=== PATIENT | female | born 1935 | race Caucasian/White ===

== ENCOUNTER → 2017-02-05 | Outpatient (CLI) | payer BC ==
--- NOTE | 2017-02-05 15:47 | MAMMOGRAPHY REPORT ---
BILATERAL DIGITAL SCREENING MAMMOGRAM TOMOSYNTHESIS WITH CAD: 02/05/2017 CLINICAL HISTORY: Routine screening. Patient has no complaints. TECHNIQUE: Breast tomosynthesis in addition to standard 2D mammography was performed. Current study was also evaluated with a Computer Aided Detection (CAD) system. COMPARISON: Comparison is made to exams dated: 04/18/2015 mammogram, 03/15/2014 mammogram, 3 mammogram, 02/11/2012 mammogram, 01/22/2011 mammogram, and 11/29/2009 mammogram - [facility] [place]. BREAST COMPOSITION: The tissue of both breasts is almost entirely fatty. FINDINGS: There are minimal vascular calcifications in the breasts. No suspicious mass, architectura l distortion or cluster of suspicious microcalcifications is seen. IMPRESSION: ACR BI-RADS CATEGORY 1: NEGATIVE There is no mammographic evidence of malignancy. A 1 year screening mammogram is recommended. The pa tient will receive written notification of the results. Approximately 10% of breast cancers are not detected with mammography. A negative mammographic report should not delay biopsy if a clinically suggestive mass is present. Maria Isabel Rice M.D. ay/:02/05/2017 15:21:41 Direct Support Specialist: Wanda MADRIGAL(Irene)([place])([place]), [facility] letter sent: Normal 1/2 BI-RADS Code: ACR BI-RADS Category 1: Negative
== END | disposition home or self-care (01) ==
LOC: C.MAMM 13:10
PROVIDERS: ATTEND Family Medicine
DX: Z12.31 Encounter for screening mammogram for malignant neoplasm of breast (principal)

== ENCOUNTER → 2017-05-01 | Outpatient (CLI) | payer BC ==
[2017-05-01 12:51] LABS: HEMATOCRIT 40.1 % (37-47); HEMOGLOBIN 13.7 g/dL (12.0-16.0); MEAN CELL VOLUME 94.4 fL (80-100); MEAN CORPUSCULAR HEMOGLOBIN 32.2 pg (25-34); MEAN CORPUSCULAR HGB CONC 34.2 g/dl (32-36); MEAN PLATELET VOLUME 12.1 fL (7.4-10.4); PLATELET COUNT 233 K/uL (130-400); RED CELL DISTRIBUTION WIDTH CV 13.7 % (11.5-14.5); RED CELL DISTRIBUTION WIDTH SD 47.3 fL (36.4-46.3); WHITE BLOOD COUNT 5.17 K/uL (4.8-10.8)
[2017-05-01 14:37] LABS: ALBUMIN 3.3 gm/dl (3.4-5.0); ALT/SGPT 24 U/L (12-78); AST/SGOT 21 U/L (15-37); BLOOD UREA NITROGEN 12 mg/dl (7-18); CALCIUM 9.2 mg/dl (8.5-10.1); CARBON DIOXIDE 28 mmol/L (21-32); CREATININE 0.72 mg/dl (0.60-1.20); GLUCOSE 102 mg/dl (70-99); POTASSIUM 3.9 mmol/L (3.5-5.1); SODIUM 136 mmol/L (136-145)
[2017-05-01 14:39] LABS: ALKALINE PHOSPHATASE 98 U/L (45-117); CHOLESTEROL 183 mg/dl (0-200); LDL CHOLESTEROL CALCULATED 96 mg/dl; TOTAL PROTEIN 7.6 gm/dl (6.4-8.2)
--- NOTE | 2017-05-06 07:30 | CODING QUERY MEDICAL NECESSITY ---
CQSUPPORTING DIAGNOSIS NEEDED A supporting diagnosis is required for the test/procedure performed on this patient in order for us to be reimbursed by the patient's insurance. Please provide a supporting diagnosis for the following test/procedure listed below next to the test name along with your signature. *If there is no additional diagnosis for this patient that would support the following test/procedure please document that below next to the test/procedure. Test(s)/Procedure(s) that require a supporting diagnosis: DOS 05/01/17 VITAMIN D TEST Provider Signature: Date: Thank you Betzy Gallegos Health Information Management Once completed, please kindly fax back to [phone] For questions please call [phone]
== END | disposition home or self-care (01) ==
LOC: C.LABPVFM 09:32
PROVIDERS: ATTEND Family Medicine
DX: Z00.00 Encounter for general adult medical examination without abnormal findings (principal); E78.2 Mixed hyperlipidemia; M81.0 Age-related osteoporosis without current pathological fracture

== ENCOUNTER 2024-12-01 09:21 | Inpatient (IN) ==
[2024-12-01] MEDS ORDERED: Patient's HEIGHT &/or WEIGHT Needed STA (09:40)
[2024-12-01 10:08] LABS: Hematocrit (blood only) 38.4 % (37.0-47.0); Hemoglobin 13.1 g/dl (12.0-16.0); Mean Corpuscular Hemoglobin 30.5 pg (25.0-34.0); Mean Corpuscular Volume 89.3 fL (80.0-100.0); Platelet Count 219 K/uL (130-400); RDW Standard Deviation 45.4 fL (36.4-46.3); Red Blood Count 4.30 M/uL (4.20-5.40); White Blood Count 6.79 K/ul (4.8-10.8)
[2024-12-01] MEDS: ERYTHROMYCIN OP OINT 5 MG/GM 3.5 GM TUBE OP ONE (10:13)
[2024-12-01] MEDS: PROPARACAINE 0.5% OP SOLN PER DROP CHARGE OP ONE (10:13)
[2024-12-01] MEDS: PROPARACAINE 0.5% 225 DROPS/15 ML BTL ONE (10:13)
[2024-12-01 10:21] LABS: Alanine Aminotransferase 31.0 U/L (7-52); Albumin Globulin Ratio 1.0 (0.9-2); Alkaline Phosphatase 98.0 U/L (34-104); Anion Gap 7.0 (3-11); Bilirubin,Total 0.4 mg/dl (0.2-1.0); Blood Urea Nitrogen 8.0 mg/dl (6-23); Calcium 8.9 mg/dl (8.6-10.3); Carbon Dioxide 29.0 mmol/L (21-32); Chloride 92.0 mmol/L (98-107); Creatinine Clr Calc Pharmacy 44.6 ml/min; Globulin 3.2 gm/dl (2.5-4.0); Glucose 109.0 mg/dl (70-99(Fasting)); Potassium 3.4 mmol/L (3.5-5.1); Sodium 128.0 mmol/L (136-145); Total Protein 6.3 gm/dl (6.0-8.3)
--- NOTE | 2024-12-01 10:29 | CT Scan Report ---
CT SCAN OF THE BRAIN WITHOUT IV CONTRAST CLINICAL HISTORY: Confusion. COMPARISON STUDY: None. TECHNIQUE: Unenhanced axial CT scan of the brain was performed from the vertex to the skull base. A dose lowering technique was utilized adhering to the principles of ALARA. CT DOSE: 547.75 mGy.cm FINDINGS: Brain parenchyma: No acute intracranial hemorrhage, midline shift or mass effect is present. Morales-whi te matter differentiation is preserved. There are no extra-axial fluid collections. There are no find ings to suggest acute dural sinus thrombosis or acute territorial infarct. White matter hypodensities are suggestive of small vessel disease. Ventricles, sulci, cisterns: There is no hydrocephalus. The basal cisterns are patent. Calvarium: Unremarkable. Sinuses and mastoids: The visualized paranasal sinuses are clear. The mastoid air cells are well pneu matized. Orbits: The bony orbits are grossly intact. Incidental note is made of left facial skin thickening and subcutaneous stranding. No associated flui d collection is identified. IMPRESSION: 1. No acute intracranial findings. 2. Left facial skin thickening and subcutaneous stranding consistent with an infectious/inflammatory process. ACT 112: Negative or not required by law. Electronically signed by: Donnie Rogel M.D. 12/01/2024 10:28 AM
--- NOTE | 2024-12-01 10:30 | Emergency Department Note ---
Impression & Plan Herpes zoster complicated, Otitis externa due to herpes zoster, Acute hypokalemia, Acute hyponatremia, Hypoalbuminemia, Conjunctivitis, [place] Cordon syndrome (geniculate herpes zoster) ED Provider Note NAME: PRABHA IRELAND AGE: 89 SEX: F : 1935 ARRIVES VIA: Ambulance INFORMANT: Patient, EMS ED PROVIDER(S): Ney Loaiza DO CHIEF COMPLAINT: weakness HPI: This is a 89-year-old female with the PMHx of HLD, anxiety, osteoporosis, hypertension presenting to [facility] for further evaluation of weakness and confusion. Patient is accompanied by EMS and family members who provide additional history. history provided by the patient as well as family members. The patient is not significantly confused. Patient has been weak over the past few days. She has been dealing with a vesicular rash of the left face for approximately 1 week. Patient was seen as an outpatient and diagnosed with herpes zoster. Patient has had recent dental issues. Patient was placed on Valtrex as an outpatient. She continues to worsen they brought her into the emergency department. Family reports that she has been struggling to get around at home and been intermittently confused. They also report that her face continues to swell and become more red.. They deny fever or chills. No cough or congestion. Denies chest pain or palpitations. No shortness of breath. They deny abdominal pain, nausea and vomiting. No urinary complaints. No recent changes in bowel movements. Patient denies recent changes in medications or OTC supplements. Patient offers no other complaints, today. ADDITIONAL HISTORY OBTAINED: Per HPI Chronic Medical/Social Conditions Affecting Care: Per HPI PAST MEDICAL HISTORY: See Below PAST SURGICAL HISTORY: See Below FAMILY HISTORY: See Below SOCIAL HISTORY: See Below HOME MEDICATIONS: See Below ALLERGIES: See Below VITALS: See Below PHYSICAL EXAMINATION: GENERAL: Sitting up in bed, alert, well appearing, well nourished, no distress, non-toxic FACE: significant swelling of the left face. Mostly low where in V2 and V3 regions. Does involve the left ear. Significant swelling and erythema of the left ear. The external auditory canal is occluded. There is lesions that are mostly crusted over across the lower face and ear. EYE EXAM: Left periorbital swelling. There is mild scleral and conjunctival injection. PERRL and EOM's grossly intact. OROPHARYNX: no exudate, no erythema, lips, buccal mucosa, and tongue normal and mucous membranes are moist NECK: supple, no nuchal rigidity, no adenopathy, non-tender, no meningeal signs LUNGS: Clear to auscultation. Normal chest wall mechanics HEART: no murmurs, regular rate, regular rhythm ABDOMEN: abdomen soft, non-tender, no masses, no rebound or guarding. BACK: Back is symmetrical on inspection and there is no deformity, no midline tenderness, no CVA tenderness. SKIN: no rashes and no bruising UPPER EXTREMITIES: upper extremities are grossly normal. LOWER EXTREMITIES: No pitting edema. NEURO EXAM: Normal sensorium, GCS 15, normal speech, no gross weakness of arms, no gross weakness of legs. No drift. Finger to nose intact. Gross sensation intact. MEDICAL DECISION MAKING: Differential diagnoses includes but not limited to disseminated herpes zoster, malignant otitis externa, herpes oticus, herpes ophthalmicus, herpes encephalitis, superimposed bacterial infection, dehydration, electrolyte derangements In summary, this is a 89 year old female who presented with weakness and confusion. Differential as above. Nursing notes and pertinent past medical records reviewed. Vital signs reviewed and the patient is mildly hypertensive but otherwise afebrile and HDS. History and presentation revealed patiently recently diagnosed with likely herpes zoster of the left face as an outpatient. Based on Valtrex. Now with worsening of facial condition. Patient does have involvement of the ear and eye on physical examination. Patient is not confused. No meningeal signs. Do not have concerns for herpes encephalitis at this time. I do believe that she has involvement of her ear in the form of [place] Cordon syndrome. Do feel that she could have involvement of her eye. Will plan for slit-lamp examination as well as further evaluation labs and imaging. Patient is not significantly confused on my exam. Patient did not have confirmatory test. Will obtain a swab for HSV. Plan for inflammatory markers as well. I am concerned about the left ear. The cartilage and soft tissue doctor significantly Wing appear on the external ear Dr. No was completely occluded. He had advised to be careful earlier for superimposed bacterial infection. Would be concern for possible malignant otitis externa. Patient will be placed on IV ciprofloxacin as well. Given concern for disseminated herpes zoster, plan for IV acyclovir transition from her p.o. Valtrex. Diagnostics interpreted by me include EKG and cardiac monitoring as listed below: -Cardiac Monitoring: An order was placed for continuous cardiac monitoring. The monitor shows a rate of 70-90s with regular rhythm. -ECG: EKG was obtained for QTc monitoring. EKG independently interpreted by me reveals normal sinus rhythm at a ventricular rate of 89 bpm. There is supraventricular contractions that are premature approximately 3 on this rhythm strip. No significant ST segment changes to suggest STEMI. Patient completed laboratory studies and imaging. Results independently interpreted by me are elevated inflammatory markers including ESR 33 and CRP. Procalcitonin is within normal limits. She does have acute hyponatremia and hypokalemia. Hypoalbuminemia noted. Patient underwent CT head imaging. Insert CT head given appearance of the eye, I performed a slit-lamp examination. Do not see any involvement that would suggest herpes ophthalmicus. I provided proparacaine as well as erythromycin ointment to evaluate. Patient was dosed for acyclovir and ciprofloxacin IV. She was provided with IV fluid resuscitation. Had extensive discussions with the patient family member at the bedside. I do believe she likely needs admission. Will continue IV antivirals as an inpatient as well as antibiotics. Patient will need close monitoring of her electrolyte derangements and fluid status Ultimately, the decision was made to admit the patient for severe herpes zoster infection with superimposed otitis externa/bacterial infection. I discussed the case with the hospitalist service via telephone/Tiger[employer] and they are agreeable to admit the patient to their services. Based on the above, including the patient's age, coexisting illnesses, labs, imaging, and exam findings the decision to treat as an inpatient. I discussed the patient with the hospitalist team who recommended admission to their services. They received the medications, treatments, interventions indicated above and their condition remained guarded. I discussed my findings with the patient and their family and they understand and agree with the treatment plan. All patient / family questions were answered to their satisfaction. Consults/Care Managements Discussions: Per MDM ER treatment provided: See above Procedures:none Critical Care: None The chart was completed utilizing [employer] voice recognition software. Grammatical errors, random word insertions, pronoun errors, and incomplete sentences are an occasional consequence of this system due to software limitations, ambient noise, and hardware issues. Any formal questions or concerns about the content, text, or information contained within the body of this dictation should be directly addressed to the physician for clarification. Past Med/Surg History Problem List (Updated 12/04/24 @ 13:56 by Ney Loaiza DO) [place] Cordon syndrome (geniculate herpes zoster) (Acute) Conjunctivitis (Acute) Hypoalbuminemia (Acute) Acute hyponatremia (Acute) Acute hypokalemia (Acute) Otitis externa due to herpes zoster (Acute) Herpes zoster complicated (Acute) Otitis externa Shingles Impetigo Trigger finger of left hand Arthritis Left inguinal hernia Groin lump HTN (hypertension), benign Osteoporosis Compression fracture of thoracic spine, non-traumatic (~08/08/23) Severe carpal tunnel syndrome of both wrists Right rotator cuff tear arthropathy Pain of left upper extremity Paresthesia of left upper extremity Neck pain, chronic Cervical radiculopathy 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 Impacted cerumen of both ears Injury of left lower extremity Hyperlipidemia (Chronic) Anxiety (Chronic) Encounter for pre-operative examination Medical History Hx of compression fracture of spine Macular degeneration Arthritis 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 Cervical radiculopathy Chronic neck pain Right rotator cuff tear arthropathy Osteoporosis Hypertension Hx pulmonary embolism (2001) Hyperlipidemia Surgical History S/P left inguinal hernia repair (05/25/24) History of carpal tunnel release Hx of colonoscopy S/P epidural steroid injection History of cataract surgery History of open reduction and internal fixation (ORIF) procedure Hx laparoscopic cholecystectomy (2001) Family History Father Myocardial infarction Heart disease Other No family history of adverse response to anesthesia No family history of bleeding disorder Denies family history of Ovarian cancer Prostate cancer Diabetes Breast cancer Colorectal cancer Hypertension Social History Smoking Status: Never smoker Second Hand Exposure: No; Do You Dip or Chew Tobacco: No; Hx Alcohol Use: No Hx Substance Use: No Preferred Language: Malagasy Communication Ability: Unable Visual Impairment: Limited Hearing Ability: Normal General Neurologist Required: No Beliefs That Will Affect Care: None marital status: / Current Living Situation: Alone current occupational status: retired How many Children do You have: 4 Feels Safe at Home: Yes Childhood Exposure to Second-Hand Smoke: Yes Diet: regular caffeine: Yes during the past year weight has: remained stable Dental Care, Regularly: Yes Physical Activity Frequency: Daily Seatbelt Use: always Sunscreen Use: Yes Do you think of yourself as: straight/heterosexual Gender Identity: Female Assistive Devices: None Allergies Allergies Allergy/AdvReac Type Severity Reaction Status Date / Time codeine AdvReac Mild Nausea Verified 12/01/24 10:25 Home Meds Home Medications Medication Instructions Recorded Confirmed calcium 600 mg (as 1 cap PO QAM 11/02/18 12/01/24 carbonate)-vitamin D3 5 mcg (200 unit) capsule (Calcium 600 + D(3)) multivitamin 1 tab PO QAM 11/02/18 12/01/24 magnesium aspart,citrate,oxide 400 mg PO DAILY 10/14/23 12/01/24 ibuprofen 200 mg tablet (Advil) 200 mg PO Q6H PRN Pain 12/03/23 12/01/24 ascorbic acid (vitamin C) 500 mg 1,000 mg PO QAM 03/04/24 12/01/24 tablet (Vitamin C) vitamin B complex 1 cap PO QAM 03/04/24 12/01/24 vitamins A,C,X-suph-tfrqhn 4,296 1 cap PO BID 03/04/24 12/01/24 mcg-226 mg-90 mg capsule (PreserVision AREDS) peg 400-propylene glycol (PF) 0.4 1 drp ophthalmic (eye) TID PRN Dry 05/12/24 12/01/24 %-0.3 % eye drops in a dropperette Eyes (Systane (PF)) Previous Rx's Medication Instructions Recorded simvastatin 40 mg tablet 40 mg PO HS #90 tabs 05/03/24 alendronate 70 mg tablet 70 mg PO Q7D #12 tabs 06/14/24 lisinopril 5 mg tablet 5 mg PO QPM #90 tabs 08/18/24 gabapentin 100 mg capsule 100 mg PO TID #90 caps 11/30/24 gabapentin 300 mg capsule 300 mg PO TID #90 caps 11/30/24 mupirocin 2 % topical ointment 1 applic topical TID #15 grams 11/30/24 gyexvdof-eepvlwnsn-qekrkknps 3.5 4 drp otic (ear) Q8H #10 mL 11/30/24 mg-10,000 unit/mL-1 % ear drops,susp valacyclovir 1 gram tablet 1,000 mg PO TID #21 tabs 11/30/24 (Valtrex) Results & Data (ED) Vital Signs Vital Signs - 24 hr 12/01/24 09:35 12/01/24 09:45 12/01/24 10:15 Temperature 37.5 C Temperature Source Oral Pulse Rate 88 84 Pulse Rate [Apical] Pulse Rate from SpO2 Sensor 84 Respiratory Rate 19 19 Blood Pressure 154/65 H 151/81 H Blood Pressure [Right Arm] Blood Pressure Mean 94 92 Blood Pressure Mean [Right Arm] Pulse Oximetry 92 93 Oxygen Delivery Method Room Air Room Air Sepsis New/Unexplained Change in Mental Status No Sepsis Action Taken by Nursing No Action Required 12/01/24 10:15 12/01/24 10:17 12/01/24 10:31 Temperature Temperature Source Pulse Rate 86 83 Pulse Rate [Apical] 83 Pulse Rate from SpO2 Sensor 85 Respiratory Rate 18 14 Blood Pressure Blood Pressure [Right Arm] 151/81 H Blood Pressure Mean Blood Pressure Mean [Right Arm] 104 Pulse Oximetry 94 93 Oxygen Delivery Method Room Air Room Air Sepsis New/Unexplained Change in Mental Status Sepsis Action Taken by Nursing 12/01/24 10:33 12/01/24 11:00 12/01/24 11:00 Temperature Temperature Source Pulse Rate 83 85 Pulse Rate [Apical] Pulse Rate from SpO2 Sensor 85 85 Respiratory Rate 19 18 Blood Pressure 154/70 H Blood Pressure [Right Arm] Blood Pressure Mean 97 Blood Pressure Mean [Right Arm] Pulse Oximetry 92 95 Oxygen Delivery Method Room Air Room Air Sepsis New/Unexplained Change in Mental Status Sepsis Action Taken by Nursing Laboratory Data 12/04/24 07:59 12/04/24 07:59 Lab Results 12/01/24 Range/Units 09:40 WBC 6.79 (4.8-10.8) K/ul RBC 4.30 (4.20-5.40) M/uL Hgb 13.1 (12.0-16.0) g/dl Hct 38.4 (37.0-47.0) % MCV 89.3 (80.0-100.0) fL MCH 30.5 (25.0-34.0) pg MCHC 34.1 (32.0-36.0) g/dL RDW Std Deviation 45.4 (36.4-46.3) fL RDW Coeff of Layla 14.0 (11.5-14.5) % Plt Count 219 (130-400) K/uL MPV 10.7 (9.4-12.4) fL Immature Gran % (Auto) 0.3 % Neut % (Auto) 61.4 % Lymph % (Auto) 16.1 % Shannon % (Auto) 21.4 % Eos % (Auto) 0.4 % Baso % (Auto) 0.4 % Neut # (Auto) 4.17 (1.40-6.50) K/uL Lymph # (Auto) 1.09 L (1.20-3.40) K/uL Shannon # (Auto) 1.45 H (0.11-0.59) K/uL Eos # (Auto) 0.03 (0.00-0.50) K/uL Baso # (Auto) 0.03 (0.00-0.20) K/uL Immature Gran # (Auto) 0.02 (0.01-0.20) K/uL ESR 33 H (0-30) mm/hr Sodium 128 L (136-145) mmol/L Potassium 3.4 L (3.5-5.1) mmol/L Chloride 92 L (98-107) mmol/L Carbon Dioxide 29 (21-32) mmol/L Anion Gap 7 (3-11) BUN 8 (6-23) mg/dl Creatinine 0.82 (0.6-1.2) mg/dl Est Cr Clr Drug Dosing 44.6 ml/min eGFR 69.19 BUN/Creatinine Ratio 9.8 L (10-20) Glucose 109 H (70-99(Fasting)) mg/dl Calcium 8.9 (8.6-10.3) mg/dl Total Bilirubin 0.4 (0.2-1.0) mg/dl AST 30 (13-39) U/L ALT 31 (7-52) U/L Alkaline Phosphatase 98 (34-104) U/L C-Reactive Protein 1.88 H (0-0.5) mg/dl Total Protein 6.3 (6.0-8.3) gm/dl Albumin 3.1 L (3.4-5.0) gm/dl Globulin 3.2 (2.5-4.0) gm/dl Albumin/Globulin Ratio 1.0 (0.9-2) Procalcitonin 0.33 (0-0.5) ng/ml Administered Medications Acetaminophen (Acetaminophen 325 Mg Tab) 650 mg PO Q4H PRN PRN Reason: Pain or Fever Stop: 12/31/24 14:36 Last Admin: 12/02/24 12:16 Dose: 650 mg Documented By: Admin: 12/01/24 17:55 Dose: 650 mg Documented By: MYRANDA Enoxaparin Sodium (Enoxaparin Inj 40 Mg/0.4 Ml Syr) 40 mg SQ QPM [facility] Stop: 12/31/24 20:59 Last Admin: 12/03/24 19:40 Dose: 40 mg Documented By: Admin: 12/02/24 19:26 Dose: 40 mg Documented By: Admin: 12/01/24 21:52 Dose: 40 mg Documented By: MARTHA Fluticasone Propionate (Fluticasone Propionate Na Spr 16 Gm Btl) 2 sprays GERALDINE DAILY [facility] Stop: 01/03/25 08:59 Last Admin: 12/04/24 08:35 Dose: Not Given Documented By: THEA Gabapentin (Gabapentin 300 Mg Cap) 300 mg PO TID [facility] Stop: 12/31/24 14:36 Last Admin: 12/04/24 08:36 Dose: 300 mg Documented By: Admin: 12/03/24 19:39 Dose: 300 mg Documented By: Admin: 12/03/24 13:39 Dose: 300 mg Documented By: appeals specialist: 12/03/24 08:39 Dose: 300 mg Documented By: appeals specialist: 12/02/24 19:26 Dose: 300 mg Documented By: Admin: 12/02/24 14:15 Dose: 300 mg Documented By: Admin: 12/02/24 08:40 Dose: 300 mg Documented By: Admin: 12/01/24 22:05 Dose: 300 mg Documented By: Admin: 12/01/24 16:17 Dose: 300 mg Documented By: DANNY Gabapentin (Gabapentin 100 Mg Cap) 100 mg PO TID [facility] Stop: 12/31/24 14:36 Last Admin: 12/04/24 08:36 Dose: 100 mg Documented By: [employer]GER [employer] Admin: 12/03/24 19:39 Dose: 100 mg Documented By: Admin: 12/03/24 13:39 Dose: 100 mg Documented By: appeals specialist: 12/03/24 08:39 Dose: 100 mg Documented By: appeals specialist: 12/02/24 19:25 Dose: 100 mg Documented By: Admin: 12/02/24 14:15 Dose: 100 mg Documented By: [facility] Admin: 12/02/24 08:40 Dose: 100 mg Documented By: [facility] Admin: 12/01/24 22:05 Dose: 100 mg Documented By: [facility] Admin: 12/01/24 16:17 Dose: 100 mg Documented By: DANNY Ciprofloxacin (Cipro / D5w) 400 mg in 200 mls @ 100 mls/hr IV Q12H CAR[facility]; Protocol Stop: 12/12/24 00:00 Last Admin: 12/04/24 11:51 Dose: 100 mls/hr Documented By: MA[employer]GER [employer] Infusion: 12/04/24 01:29 Dose: Infused Documented By: Admin: 12/03/24 23:29 Dose: 100 mls/hr Documented By: Infusion: 12/03/24 15:01 Dose: Infused Documented By: appeals specialist: 12/03/24 11:44 Dose: 100 mls/hr Documented By: Infusion: 12/03/24 02:26 Dose: Infused Documented By: Admin: 12/03/24 00:26 Dose: 100 mls/hr Documented By: Infusion: 12/02/24 14:31 Dose: Infused Documented By: [facility] Admin: 12/02/24 12:16 Dose: 100 mls/hr Documented By: [facility] Infusion: 12/02/24 01:03 Dose: Infused Documented By: [facility] Admin: 12/01/24 23:03 Dose: 100 mls/hr Documented By: [facility] Lisinopril (Lisinopril 5 Mg Tab) 5 mg PO QPM [facility] Stop: 12/31/24 20:59 Last Admin: 12/03/24 19:39 Dose: 5 mg Documented By: Admin: 12/02/24 19:26 Dose: 5 mg Documented By: Admin: 12/01/24 21:52 Dose: 5 mg Documented By: MARTHA Oxymetazoline HCl (Oxymetazoline 0.05% 30 Ml Btl) 1 sprays NA BID PRN PRN Reason: congestion Stop: 01/02/25 17:56 Last Admin: 12/03/24 18:42 Dose: 1 sprays Documented By: LISETTE Simvastatin (Simvastatin 40 Mg Tab) 40 mg PO HS [facility] Stop: 12/31/24 20:59 Last Admin: 12/03/24 19:40 Dose: 40 mg Documented By: Admin: 12/02/24 19:26 Dose: 40 mg Documented By: Admin: 12/01/24 21:52 Dose: 40 mg Documented By: MARTHA Discontinued Medications Erythromycin (Erythromycin Op Oint 5 Mg/Gm 3.5 Gm Tube) 1 appln OP NOW ONE Stop: 12/01/24 09:37 Last Admin: 12/01/24 10:13 Dose: 1 appln Documented By: SPARKLE Acyclovir Sodium 700 mg/ (Dextrose) 114 mls @ 100 mls/hr IV NOW ONE Stop: 12/01/24 11:08 Last Infusion: 12/01/24 11:40 Dose: Infused Documented By: Admin: 12/01/24 10:37 Dose: 100 mls/hr Documented By: SPARKLE Sodium Chloride (Nss) 1,000 mls @ 999 mls/hr IV .Q1H1M ONE Stop: 12/01/24 11:30 Last Infusion: 12/01/24 11:45 Dose: Infused Documented By: Admin: 12/01/24 10:37 Dose: 999 mls/hr Documented By: SPARKLE Ciprofloxacin (Cipro / D5w) 400 mg in 200 mls @ 100 mls/hr IV NOW STA; Protocol Stop: 12/01/24 13:25 Last Infusion: 12/01/24 13:54 Dose: Infused Documented By: Admin: 12/01/24 11:41 Dose: 100 mls/hr Documented By: SPARKLE Acyclovir Sodium 700 mg/ (Dextrose) 114 mls @ 100 mls/hr IV Q12H CARLOS; Protocol Stop: 12/08/24 22:29 Last Infusion: 12/04/24 12:21 Dose: Infused Documented By: Admin: 12/04/24 10:34 Dose: 100 mls/hr Documented By: Infusion: 12/03/24 23:36 Dose: Infused Documented By: Admin: 12/03/24 22:27 Dose: 100 mls/hr Documented By: Infusion: 12/03/24 11:43 Dose: Infused Documented By: appeals specialist: 12/03/24 10:31 Dose: 100 mls/hr Documented By: Infusion: 12/03/24 00:28 Dose: Infused Documented By: Admin: 12/02/24 23:19 Dose: 100 mls/hr Documented By: Infusion: 12/02/24 12:41 Dose: Infused Documented By: Admin: 12/02/24 11:10 Dose: 100 mls/hr Documented By: Infusion: 12/01/24 23:02 Dose: Infused Documented By: Admin: 12/01/24 21:53 Dose: 100 mls/hr Documented By: MARTHA Potassium Chloride (Potassium Chloride Crtab 20 Meq Tabcr) 20 meq PO NOW STA Stop: 12/01/24 11:42 Last Admin: 12/01/24 12:33 Dose: 20 meq Documented By: MYRANDA Proparacaine HCl (Proparacaine 0.5% Op Soln Per Drop Charge) 2 drops OP PREOP ONE Stop: 12/01/24 09:39 Last Admin: 12/01/24 10:13 Dose: 2 drops Documented By: SPARKLE Proparacaine HCl (Proparacaine 0.5% 225 Drops/15 Ml Btl) Confirm Administered Dose 225 drops .ROUTE .STK-MED ONE Stop: 12/01/24 10:11 Last Admin: 12/01/24 10:13 Dose: Not Given Documented By: SPARKLE Imaging Data Radiologist's Impression: Head CT 12/01/24 09:36 CT SCAN OF THE BRAIN WITHOUT IV CONTRAST CLINICAL HISTORY: Confusion. COMPARISON STUDY: None. TECHNIQUE: Unenhanced axial CT scan of the brain was performed from the vertex to the skull base. A dose lowering technique was utilized adhering to the principles of ALARA. CT DOSE: 547.75 mGy.cm FINDINGS: Brain parenchyma: No acute intracranial hemorrhage, midline shift or mass effect is present. Morales-white matter differentiation is preserved. There are no extra- axial fluid collections. There are no findings to suggest acute dural sinus thrombosis or acute territorial infarct. White matter hypodensities are suggestive of small vessel disease. Ventricles, sulci, cisterns: There is no hydrocephalus. The basal cisterns are patent. Calvarium: Unremarkable. Sinuses and mastoids: The visualized paranasal sinuses are clear. The mastoid air cells are well pneumatized. Orbits: The bony orbits are grossly intact. Incidental note is made of left facial skin thickening and subcutaneous stranding. No associated fluid collection is identified. IMPRESSION: 1. No acute intracranial findings. 2. Left facial skin thickening and subcutaneous stranding consistent with an infectious/inflammatory process. ACT 112: Negative or not required by law. Electronically signed by: Donnie Rogel M.D. 12/01/2024 10:28 AM Discharge Plan Visit Data Chief Complaint: Illness Stated Complaint: WEAKNESS, CONFUSION ED Provider: Ney Loaiza Discharge Problem: Herpes zoster complicated, Otitis externa due to herpes zoster, Acute hypokalemia, Acute hyponatremia, Hypoalbuminemia, Conjunctivitis, Jose Eduardo Cordon syndrome (geniculate herpes zoster) Patient Disposition: Admitted As Inpatient Condition: Serious Discharge Instructions Interventions: ED Discharge Assessment Last Done: 12/01/24 14:37
[2024-12-01 10:32] LABS: Immature Granulocytes # (auto) 0.02 K/uL (0.01-0.20); Immature Granulocytes % (auto) 0.3 %
[2024-12-01] MEDS: SODIUM CHLORIDE 0.9% 1,000 ML IV ONE (10:37)
[2024-12-01] MEDS: ACYCLOVIR SOD 700 MG in DEXTROSE 5% 100 ML IV ONE (10:37)
[2024-12-01] MEDS: CIPROFLOXACIN / D5W 400 MG/200 ML BAG IV STA (11:41)
--- NOTE | 2024-12-01 12:23 | History & Physical Report ---
Date of Service December 01, 2024 Assessment & Plan (1) Shingles: (2) Otitis externa: Plan This is an 89 year old female with past medical history of arthritis, hypertension, HLD who presented to the ED on 12/01/2024 with a chief complaint of weakness & shingles. While in the ED she had a head CT that was negative for acute intracranial findings but did reveal left facial skin thickening & subcutaneous stranding consistent w/ an infectious/inflammatory process, CBC wnl, procal WNL. BMP w/ mildly low K of 3.4 & low sodium of 128. CRP mildly elevated at 1.88. HSV studies pending. Eye exam was completed by ED in which there were no signs of the zoster infection spreading. #Herpes Zoster w/ ongoing vesicular rash for ~ 7 days outpatient. Presented to PCP yesterday but due to progressive weakening presented to ED. CBC wnl, procal WNL; CRP 1.[address]:negative for acute intracranial findings; left facial skin thickening & subcutaneous stranding consistent w/ an infectious/inflammatory process Eye exam completed by ED provider who noted no spread to left eye. s/p IV Acyclovir - continue upon admission. Continue Gabapentin to aide w/ nerve pain. Monitor for signs of improvement. #Otitis Externa Zoster has affected ear region, unable to visualize TM Given significant swelling & erythema of ear, cover for bacterial origin as well. s/p IV Cipro --> continue upon admission. #Hypokalemia/hyponatremia likely secondary to decreased PO intake from not feeling well. K low at 3.4 s/p 20meq potassium on admission Na 128, s/p IVF --> if continues to be persistently low consider sodium workup. AM BMP #weakness secondary to viral infection PT/OT consulted, appreciate recommendations fall precautions #HTN - Lisinopril #HLD - statin DVT prophylaxis: Lovenox Code: full case discussed w/ Dr. Judd at time of admission. updated daughters at bedside 12/01. History of Present Illness Primary Care Provider: Ruchi Ulloa MD This is an 89 year old female with past medical history of arthritis, hypertension, HLD who presented to the ED on 12/01/2024 with a chief complaint of weakness & shingles. Estela was seen and examined this morning with her daughters at beside. Approximately 1 week ago she began to develop tooth pain & vesicles inside the mouth on her left side. She went to the dentist presuming she had a dental infection & was given abx & voltaren & recommended a root canal. Then the vesicular rash spread to her face on the left side of her face. She also developed ear pain & her left ear has became edematous & painful. Daughters state she started to become more weak as well. she went to PCP yesterday in which she was given valacyclovir, gabapentin & recommended to go to an eye doctor. This morning, she fell off the toilet and may have struck her head. Daughters state she typically lives alone & is independent up until this started. Denies CP, SOB, abdominal pain, nausea, vomiting, or LE edema. While in the ED she had a head CT that was negative for acute intracranial findings but did reveal left facial skin thickening & subcutaneous stranding consistent w/ an infectious/inflammatory process, CBC wnl, procal WNL. BMP w/ mildly low K of 3.4 & low sodium of 128. CRP mildly elevated at 1.88. HSV studies pending. Eye exam was completed by ED in which there were no signs of the zoster infection spreading. Code discussion did take place & she does confirm that she is a DNR/DNI. Allergies Allergy/AdvReac Type Severity Reaction Status Date / Time codeine AdvReac Mild Nausea Verified 12/01/24 10:25 Home Medications Medication Instructions Recorded Confirmed Type calcium 600 mg (as 1 cap PO QAM 11/02/18 12/01/24 History carbonate)-vitamin D3 5 mcg (200 unit) capsule (Calcium 600 + D(3)) multivitamin 1 tab PO QAM 11/02/18 12/01/24 History magnesium aspart,citrate,oxide 400 mg PO DAILY 10/14/23 12/01/24 History ibuprofen 200 mg tablet (Advil) 200 mg PO Q6H PRN Pain 12/03/23 12/01/24 History ascorbic acid (vitamin C) 500 mg 1,000 mg PO QAM 03/04/24 12/01/24 History tablet (Vitamin C) vitamin B complex 1 cap PO QAM 03/04/24 12/01/24 History vitamins A,C,M-zhqr-ehwtfb 4,296 1 cap PO BID 03/04/24 12/01/24 History mcg-226 mg-90 mg capsule (PreserVision AREDS) simvastatin 40 mg tablet 40 mg PO HS #90 tabs 05/03/24 12/01/24 Rx peg 400-propylene glycol (PF) 0.4 1 drp ophthalmic (eye) TID PRN Dry 05/12/24 12/01/24 History %-0.3 % eye drops in a dropperette Eyes (Systane (PF)) alendronate 70 mg tablet 70 mg PO Q7D #12 tabs 06/14/24 12/01/24 Rx lisinopril 5 mg tablet 5 mg PO QPM #90 tabs 08/18/24 12/01/24 Rx gabapentin 100 mg capsule 100 mg PO TID #90 caps 11/30/24 12/01/24 Rx gabapentin 300 mg capsule 300 mg PO TID #90 caps 11/30/24 12/01/24 Rx mupirocin 2 % topical ointment 1 applic topical TID #15 grams 11/30/24 12/01/24 Rx [id number]-khnukryql-rvehexqrc 3.5 4 drp otic (ear) Q8H #10 mL 11/30/24 12/01/24 Rx mg-10,000 unit/mL-1 % ear drops,susp valacyclovir 1 gram tablet 1,000 mg PO TID #21 tabs 11/30/24 12/01/24 Rx (Valtrex) Past Med/Surg History Problem List Otitis externa Shingles Impetigo Trigger finger of left hand Arthritis Left inguinal hernia Groin lump HTN (hypertension), benign Osteoporosis Compression fracture of thoracic spine, non-traumatic (~08/08/23) Severe carpal tunnel syndrome of both wrists Right rotator cuff tear arthropathy Pain of left upper extremity Paresthesia of left upper extremity Neck pain, chronic Cervical radiculopathy 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 Impacted cerumen of both ears Injury of left lower extremity Hyperlipidemia (Chronic) Anxiety (Chronic) Encounter for pre-operative examination Medical History Hx of compression fracture of spine Macular degeneration Arthritis 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 Cervical radiculopathy Chronic neck pain Right rotator cuff tear arthropathy Osteoporosis Hypertension Hx pulmonary embolism (2001) Hyperlipidemia Surgical History S/P left inguinal hernia repair (05/25/24) History of carpal tunnel release Hx of colonoscopy S/P epidural steroid injection History of cataract surgery History of open reduction and internal fixation (ORIF) procedure Hx laparoscopic cholecystectomy (2001) Family History Father Myocardial infarction Heart disease Other No family history of adverse response to anesthesia No family history of bleeding disorder Denies family history of Ovarian cancer Prostate cancer Diabetes Breast cancer Colorectal cancer Hypertension Social History Smoking Status: Never smoker Second Hand Exposure: No; Do You Dip or Chew Tobacco: No; Hx Alcohol Use: No Hx Substance Use: No Preferred Language: Martiniquais Communication Ability: Effective Visual Impairment: Limited Hearing Ability: Normal 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 Beliefs That Will Affect Care: None marital status: / Current Living Situation: Alone current occupational status: retired How many Children do You have: 4 Feels Safe at Home: Yes Childhood Exposure to Second-Hand Smoke: Yes Diet: regular caffeine: Yes during the past year weight has: remained stable Dental Care, Regularly: Yes Physical Activity Frequency: Daily Seatbelt Use: always Sunscreen Use: Yes Do you think of yourself as: straight/heterosexual Gender Identity: Female Assistive Devices: Denture - Upper and Glasses Physical Exam Constitutional: WD/WN, vitals as above Eyes: left eye more swollen than right ENMT: vesicular rash on left side of face including lower jaw & cheek region. 1 vesicle noted by eye & 1 noted near hairline. vesicles located before left ear. Left ear is swollen and erythematous. painful to palpation. unable to visualize TM. mild anterior cervical LAD. Respiratory: normal respiratory effort, lungs clear to auscultation Cardiovascular: RRR, no murmur, no edema Gastrointestinal (Abdomen): normal bowel sounds, soft, nontender, no hepatosplenomegaly Neurologic: PERRL, EOMI, accommodation nl, no face palsy, no dysarthria Psychiatric: A+Ox3, euthymic affect Results & Data Results & Data Vital Signs (Past 12 Hours) Vital Signs Temp Pulse Pulse Resp BP BP Pulse Ox 12/01/24 11:33 96 H 24 12/01/24 11:15 87 19 93 12/01/24 11:00 85 18 95 12/01/24 11:00 154/70 H 12/01/24 10:33 83 19 92 12/01/24 10:31 83 14 151/81 H 93 12/01/24 10:17 83 12/01/24 10:15 86 18 94 12/01/24 10:15 151/81 H 12/01/24 09:45 84 19 93 12/01/24 09:35 37.5 C 88 19 154/65 H 92 O2 Del Method 12/01/24 11:33 12/01/24 11:15 Room Air 12/01/24 11:00 Room Air 12/01/24 11:00 12/01/24 10:33 Room Air 12/01/24 10:31 Room Air 12/01/24 10:17 12/01/24 10:15 Room Air 12/01/24 10:15 12/01/24 09:45 Room Air 12/01/24 09:35 Room Air Supervising Physician Co-Signing Physician Notes The patient was seen by me. The chart was reviewed. Case discussed with MILVIA Qureshi. Agree with assessment and plan PG Care Time/CCT Total # of Minutes Spent Total Time Spent with Patient: Total time spent is greater than 50% in coordination of care (as documented) at patient's floor/unit and/or counseling patient: Coding Level of Care Code 94387 INT INP/OBS CARE 3/75MIN Diagnoses Herpes zoster with complication B02.8 Herpes zoster complications: unspecified herpes zoster complication Acute otitis externa of left ear, unspecified type H60.502 Chronicity: acute Laterality: left Otitis externa type: unspecified type (1) Shingles Herpes zoster complications: unspecified herpes zoster complication Qualified Code(s): B02.8 - Zoster with other complications (2) Otitis externa Chronicity: acute Laterality: left Otitis externa type: unspecified type Qualified Code(s): H60.502 - Unspecified acute noninfective otitis externa, left ear
[2024-12-01] MEDS: POTASSIUM CHLORIDE CRTAB 20 MEQ TABCR PO STA (12:33)
[2024-12-01] MEDS ORDERED: ONDANSETRON INJ 2 MG/ML 2 ML VIAL IV PRN (14:37)
[2024-12-01] MEDS: GABAPENTIN 100 MG CAP PO SCH (16:17)
[2024-12-01] MEDS: GABAPENTIN 300 MG CAP PO SCH (16:17)
--- NOTE | 2024-12-01 16:24 | Electrocardiogram Report ---
Test Reason : Blood Pressure : */* mmHG Vent. Rate : 89 BPM Atrial Rate : 89 BPM P-R Int : 152 ms QRS Dur : 82 ms QT Int : 388 ms P-R-T Axes : 27 11 25 degrees QTcB Int : 472 ms Sinus rhythm with Premature supraventricular complexes Otherwise normal ECG When compared with ECG of 06-May-2024 09:42, Premature supraventricular complexes are now Present QT has lengthened Confirmed by Eren Fraga ([id number]) on 12/01/2024 4:24:00 PM Referred By: REFERRED SELF Confirmed By: Eren Fraga
[2024-12-01] MEDS: ACETAMINOPHEN 325 MG TAB PO PRN (17:55)
[2024-12-01] MEDS: SIMVASTATIN 40 MG TAB PO SCH (21:52)
[2024-12-01] MEDS: ENOXAPARIN INJ 40 MG/0.4 ML SYR SQ SCH (21:52)
[2024-12-01] MEDS: ACYCLOVIR SOD 700 MG in DEXTROSE 5% 100 ML IV SCH (21:53)
[2024-12-01] MEDS: CIPROFLOXACIN / D5W 400 MG/200 ML BAG IV SCH (23:03)
[2024-12-02 07:10] LABS: Hematocrit (blood only) 36.7 % (37.0-47.0); Hemoglobin 12.8 g/dl (12.0-16.0); Mean Corpuscular Hemoglobin 31.8 pg (25.0-34.0); Mean Corpuscular Volume 91.1 fL (80.0-100.0); Platelet Count 190 K/uL (130-400); RDW Standard Deviation 47.4 fL (36.4-46.3); Red Blood Count 4.03 M/uL (4.20-5.40); White Blood Count 7.35 K/ul (4.8-10.8)
[2024-12-02 07:32] LABS: Anion Gap 5.0 (3-11); Blood Urea Nitrogen 11.0 mg/dl (6-23); Calcium 8.6 mg/dl (8.6-10.3); Carbon Dioxide 29.0 mmol/L (21-32); Chloride 97.0 mmol/L (98-107); Creatinine Clr Calc Pharmacy 35.1 ml/min; Glucose 96.0 mg/dl (70-99(Fasting)); Magnesium 2.1 mg/dl (1.7-2.4); Potassium 3.9 mmol/L (3.5-5.1); Sodium 131.0 mmol/L (136-145)
--- NOTE | 2024-12-02 11:38 | Hospitalist Progress Note ---
Date of Service December 02, 2024 Assessment & Plan (1) Shingles: (2) Otitis externa: Plan This is an 89 year old female with past medical history of arthritis, hypertension, HLD who presented to the ED on 12/01/2024 with a chief complaint of weakness & shingles. While in the ED she had a head CT that was negative for acute intracranial findings but did reveal left facial skin thickening & subcutaneous stranding consistent w/ an infectious/inflammatory process, CBC wnl, procal WNL. BMP w/ mildly low K of 3.4 & low sodium of 128. CRP mildly elevated at 1.88. HSV studies pending. Eye exam was completed by ED in which there were no signs of the zoster infection spreading. #Herpes Zoster w/ ongoing vesicular rash for ~ 7 days outpatient. CBC wnl, procal WNL; CRP increased to 4.[address]:negative for acute intracranial findings; left facial skin thickening & subcutaneous stranding consistent w/ an infectious/inflammatory process Eye exam completed by ED provider who noted no spread to left eye. Continue IV acyclovir. Continue Gabapentin to aide w/ nerve pain. Monitor for signs of improvement. Low grade fever last 24 hours, controlled w/ Tylenol - continue prn #Otitis Externa Zoster has affected ear region, unable to visualize TM Given significant swelling & erythema of ear, cover for bacterial origin as well. Continue IV Cipro #Hypokalemia/hyponatremia likely secondary to decreased PO intake from not feeling well. K now WNL at 3.9, Na increased to 131 AM BMP #weakness secondary to viral infection PT/OT consulted --> recommending rehab. fall precautions #HTN - Lisinopril #HLD - statin DVT prophylaxis: Lovenox Code: full updated family at bedside 12/02. Admission and Anticipated Discharge Date Admission Date: December 01, 2024 Supervising Physician Co-Signing Physician Notes The patient was not seen by me. The chart was reviewed. Case discussed with MILVIA Qureshi. Agree with assessment and plan Subjective Estela was seen and examined this morning. She reports to be feeling better today. She was able to walk to the bathroom with PT. Her family reports that she is shaky on her feet which is new for her as she was able to ambulate quite well prior to this. Physical Exam Constitutional: no acute distress, lying in bed Respiratory: normal respiratory effort Skin: vesicular rash on left side of face including lower jaw & cheek region. vesicles located before left ear. Left ear is swollen and erythematous. painful to palpation. Psychiatric: A+Ox3, euthymic affect Results & Data Results & Data Vital Signs (Past 12 Hours) Vital Signs Temp Pulse Pulse Resp BP BP Pulse Ox 12/02/24 11:29 37.8 C H 95 H 20 148/65 H 91 12/02/24 08:35 12/02/24 08:28 36.9 C 81 20 138/70 93 12/02/24 07:22 79 12/02/24 03:34 37.3 C 76 18 132/68 93 O2 Del Method 12/02/24 11:29 Room Air 12/02/24 08:35 Room Air 12/02/24 08:28 Room Air 12/02/24 07:22 12/02/24 03:34 Room Air PG Care Time/CCT Total # of Minutes Spent Total Time Spent with Patient: Total time spent is greater than 50% in coordination of care (as documented) at patient's floor/unit and/or counseling patient: Coding Level of Care Code 38894 SUB INP/OBS CARE MIN Diagnoses Herpes zoster with complication B02.8 Herpes zoster complications: unspecified herpes zoster complication Acute otitis externa of left ear, unspecified type H60.502 Chronicity: acute Laterality: left Otitis externa type: unspecified type (1) Shingles Herpes zoster complications: unspecified herpes zoster complication Qualified Code(s): B02.8 - Zoster with other complications (2) Otitis externa Chronicity: acute Laterality: left Otitis externa type: unspecified type Qualified Code(s): H60.502 - Unspecified acute noninfective otitis externa, left ear
[2024-12-03 04:42] LABS: Hematocrit (blood only) 31.7 % (37.0-47.0); Hemoglobin 10.6 g/dl (12.0-16.0); Mean Corpuscular Hemoglobin 30.5 pg (25.0-34.0); Mean Corpuscular Volume 91.1 fL (80.0-100.0); Platelet Count 201 K/uL (130-400); RDW Standard Deviation 47.4 fL (36.4-46.3); Red Blood Count 3.48 M/uL (4.20-5.40); White Blood Count 8.58 K/ul (4.8-10.8)
[2024-12-03 04:54] LABS: Anion Gap 6.0 (3-11); Blood Urea Nitrogen 12.0 mg/dl (6-23); Calcium 8.3 mg/dl (8.6-10.3); Carbon Dioxide 29.0 mmol/L (21-32); Chloride 96.0 mmol/L (98-107); Creatinine Clr Calc Pharmacy 43.7 ml/min; Glucose 95.0 mg/dl (70-99(Fasting)); Magnesium 1.9 mg/dl (1.7-2.4); Potassium 3.6 mmol/L (3.5-5.1); Sodium 131.0 mmol/L (136-145)
--- NOTE | 2024-12-03 12:10 | Hospitalist Progress Note ---
Date of Service December 03, 2024 Assessment & Plan (1) Shingles: (2) Otitis externa: Plan This is an 89 year old female with past medical history of arthritis, hypertension, HLD who presented to the ED on 12/01/2024 with a chief complaint of weakness & shingles. While in the ED she had a head CT that was negative for acute intracranial findings but did reveal left facial skin thickening & subcutaneous stranding consistent w/ an infectious/inflammatory process, CBC wnl, procal WNL. BMP w/ mildly low K of 3.4 & low sodium of 128. CRP mildly elevated at 1.88. HSV studies pending. Eye exam was completed by ED in which there were no signs of the zoster infection spreading. #Herpes Zoster w/ ongoing vesicular rash for ~ 7 days outpatient. CBC wnl, procal WNL; CRP increased to 4.[address]:negative for acute intracranial findings; left facial skin thickening & subcutaneous stranding consistent w/ an infectious/inflammatory process Eye exam completed by ED provider who noted no spread to left eye. Continue IV acyclovir. Continue Gabapentin to aide w/ nerve pain. AM CBC & CRP #Otitis Externa Zoster has affected ear region, unable to visualize TM on admission. Given significant swelling & erythema of ear, cover for bacterial origin as well. Continue IV Cipro #Hypokalemia - resolved K at 3.6 #hyponatremia Na stable @ 131. Baseline ~ 137 Continue to monitor. #weakness secondary to viral infection PT/OT consulted --> recommending rehab. Discussed w/ family & CM 12/03 - they are thinking about which facility & will let CM know. fall precautions #HTN - Lisinopril #HLD - statin DVT prophylaxis: Lovenox Code: full updated family at bedside 12/03 Admission and Anticipated Discharge Date Admission Date: December 01, 2024 Supervising Physician Co-Signing Physician Notes The patient was not seen by me. The chart was reviewed. Case discussed with MILVIA Qureshi. Agree with assessment and plan Subjective Estela seen & examined this morning. She reports she is feeling better today. Denied any symptoms. Physical Exam Constitutional: no acute distress Respiratory: normal respiratory effort Skin: vesicular rash on left side of face improving. Lesions now crusted over. Neurologic: PERRL, EOMI, accommodation nl, no face palsy, no dysarthria Psychiatric: A+Ox3, euthymic affect Results & Data Results & Data Vital Signs (Past 12 Hours) Vital Signs Temp Pulse Pulse Resp BP BP Pulse Ox 12/03/24 11:46 36.9 C 77 20 143/72 H 92 12/03/24 10:38 12/03/24 08:12 37.4 C 76 20 126/67 94 12/03/24 05:38 70 12/03/24 02:19 37 C 78 16 134/65 90 O2 Del Method 12/03/24 11:46 Room Air 12/03/24 10:38 Room Air 12/03/24 08:12 Room Air 12/03/24 05:38 12/03/24 02:19 Room Air PG Care Time/CCT Total # of Minutes Spent Total Time Spent with Patient: Total time spent is greater than 50% in coordination of care (as documented) at patient's floor/unit and/or counseling patient: Coding Level of Care Code 88346 SUB INP/OBS CARE 2MIN Diagnoses Herpes zoster with complication B02.8 Herpes zoster complications: unspecified herpes zoster complication Acute otitis externa of left ear, unspecified type H60.502 Chronicity: acute Laterality: left Otitis externa type: unspecified type (1) Shingles Herpes zoster complications: unspecified herpes zoster complication Qualified Code(s): B02.8 - Zoster with other complications (2) Otitis externa Chronicity: acute Laterality: left Otitis externa type: unspecified type Qualified Code(s): H60.502 - Unspecified acute noninfective otitis externa, left ear
[2024-12-03] MEDS ORDERED: guaiFENesin 600 MG TABCR PO PRN (17:57)
[2024-12-03] MEDS: OXYMETAZOLINE 0.05% 30 ML BTL PRN (18:42)
[2024-12-04 08:32] LABS: Hematocrit (blood only) 32.5 % (37.0-47.0); Hemoglobin 11.2 g/dl (12.0-16.0); Mean Corpuscular Hemoglobin 31.0 pg (25.0-34.0); Mean Corpuscular Volume 90.0 fL (80.0-100.0); Platelet Count 220 K/uL (130-400); RDW Standard Deviation 45.1 fL (36.4-46.3); Red Blood Count 3.61 M/uL (4.20-5.40); White Blood Count 7.93 K/ul (4.8-10.8)
[2024-12-04] MEDS: FLUTICASONE PROPIONATE NA SPR 16 GM BTL NAE SCH (08:35)
[2024-12-04 08:49] LABS: Anion Gap 6.0 (3-11); Blood Urea Nitrogen 9.0 mg/dl (6-23); Calcium 8.4 mg/dl (8.6-10.3); Carbon Dioxide 30.0 mmol/L (21-32); Chloride 97.0 mmol/L (98-107); Creatinine Clr Calc Pharmacy 58.4 ml/min; Glucose 103.0 mg/dl (70-99(Fasting)); Potassium 3.6 mmol/L (3.5-5.1); Sodium 133.0 mmol/L (136-145)
--- NOTE | 2024-12-04 12:06 | Hospitalist Progress Note ---
Date of Service December 04, 2024 Assessment & Plan (1) Shingles: (2) Otitis externa: Plan This is an 89 year old female with past medical history of arthritis, hypertension, HLD who presented to the ED on 12/01/2024 with a chief complaint of weakness & shingles. While in the ED she had a head CT that was negative for acute intracranial findings but did reveal left facial skin thickening & subcutaneous stranding consistent w/ an infectious/inflammatory process, CBC wnl, procal WNL. BMP w/ mildly low K of 3.4 & low sodium of 128. CRP mildly elevated at 1.88. HSV studies pending. Eye exam was completed by ED in which there were no signs of the zoster infection spreading. #Herpes Zoster w/ ongoing vesicular rash for ~ 7 days outpatient. CBC wnl, procal WNL; CRP increased to 5.31 (trend until downtrends) head CT:negative for acute intracranial findings; left facial skin thickening & subcutaneous stranding consistent w/ an infectious/inflammatory process Eye exam completed by ED provider who noted no spread to left eye. Continue IV acyclovir. Continue Gabapentin to aide w/ nerve pain. --> did discuss w/ patient that we could increase gabapentin but she reports pain is manageable for now. AM CBC & CRP #Otitis Externa/TM perforation Zoster has affected ear region, unable to visualize TM on admission. re-examined 12/04 which appears to be small perforated tympanic membrane. Keep ear dry, will need ENT referral on discharge. Continue IV Cipro #Hypokalemia - resolved K at 3.6 #hyponatremia Na stable @ 133. Baseline ~ 137 Continue to monitor. #weakness secondary to viral infection PT/OT consulted --> recommending rehab. Referrals out to [facility] fall precautions #HTN - Lisinopril #HLD - statin DVT prophylaxis: Lovenox Code: full updated family at bedside 12/04 Admission and Anticipated Discharge Date Admission Date: December 01, 2024 Duc Palmer was seen and examined this morning w/ her daughter at bedside. She reports she is feeling okay today. She reports left sided facial pain but states it is tolerable. reports still having issues w/ hearing in her left ear. Physical Exam Constitutional: no acute distress ENMT: small perforation in left tympanic membrane w/ bloody purulent drainage. Skin: vesicular rash on left side of face improving. Lesions now crusted over. Neurologic: PERRL, EOMI, accommodation nl, no face palsy, no dysarthria Psychiatric: A+Ox3, euthymic affect Results & Data Results & Data Vital Signs (Past 12 Hours) Vital Signs Temp Pulse Pulse Resp BP BP Pulse Ox 12/04/24 08:03 36.9 C 71 18 141/64 H 92 12/04/24 05:31 62 12/04/24 04:00 36.7 C 69 18 129/70 97 O2 Del Method 12/04/24 08:03 Room Air 12/04/24 05:31 12/04/24 04:00 Room Air PG Care Time/CCT Total # of Minutes Spent Total Time Spent with Patient: Total time spent is greater than 50% in coordination of care (as documented) at patient's floor/unit and/or counseling patient: Coding Level of Care Code 91376 SUB INP/OBS CARE 2/35MIN Diagnoses Herpes zoster with complication B02.8 Herpes zoster complications: unspecified herpes zoster complication Acute otitis externa of left ear, unspecified type H60.502 Chronicity: acute Laterality: left Otitis externa type: unspecified type (1) Shingles Herpes zoster complications: unspecified herpes zoster complication Qualified Code(s): B02.8 - Zoster with other complications (2) Otitis externa Chronicity: acute Laterality: left Otitis externa type: unspecified type Qualified Code(s): H60.502 - Unspecified acute noninfective otitis externa, left ear
[2024-12-04] MEDS: ACYCLOVIR SOD 700 MG in DEXTROSE 5% 100 ML IV SCH (18:16)
[2024-12-05 06:15] LABS: Hematocrit (blood only) 30.8 % (37.0-47.0); Hemoglobin 10.6 g/dl (12.0-16.0); Mean Corpuscular Hemoglobin 30.8 pg (25.0-34.0); Mean Corpuscular Volume 89.5 fL (80.0-100.0); Platelet Count 239 K/uL (130-400); RDW Standard Deviation 44.8 fL (36.4-46.3); Red Blood Count 3.44 M/uL (4.20-5.40); White Blood Count 7.85 K/ul (4.8-10.8)
[2024-12-05 06:54] LABS: Anion Gap 7.0 (3-11); Blood Urea Nitrogen 8.0 mg/dl (6-23); Calcium 8.5 mg/dl (8.6-10.3); Carbon Dioxide 30.0 mmol/L (21-32); Chloride 96.0 mmol/L (98-107); Creatinine Clr Calc Pharmacy 63.5 ml/min; Glucose 107.0 mg/dl (70-99(Fasting)); Potassium 3.4 mmol/L (3.5-5.1); Sodium 133.0 mmol/L (136-145)
[2024-12-05] MEDS: POTASSIUM CHLORIDE CRTAB 20 MEQ TABCR PO STA (09:29)
[2024-12-05] MEDS: CIPROFLOXACIN 500 MG TAB PO SCH (11:54)
[2024-12-05] MEDS: ACYCLOVIR 400 MG TAB PO ONE (11:54)
--- NOTE | 2024-12-05 11:57 | Hospitalist Progress Note ---
Date of Service December 05, 2024 Assessment & Plan (1) Shingles: (2) Otitis externa: Plan This is an 89 year old female with past medical history of arthritis, hypertension, HLD who presented to the ED on 12/01/2024 with a chief complaint of weakness & shingles. While in the ED she had a head CT that was negative for acute intracranial findings but did reveal left facial skin thickening & subcutaneous stranding consistent w/ an infectious/inflammatory process, CBC wnl, procal WNL. BMP w/ mildly low K of 3.4 & low sodium of 128. CRP mildly elevated at 1.88. HSV studies pending. Eye exam was completed by ED in which there were no signs of the zoster infection spreading. #Herpes Zoster w/ ongoing vesicular rash for ~ 7 days outpatient. CBC wnl, procal WNL; CRP increased to 5.31 (trend until downtrends) head CT:negative for acute intracranial findings; left facial skin thickening & subcutaneous stranding consistent w/ an infectious/inflammatory process Eye exam completed by ED provider who noted no spread to left eye. Switched IV Acyclovir to PO secondary to pain w/ infusions. Plan to dc on 12/08 to complete 7 day course. Continue Gabapentin to aide w/ nerve pain. --> increased to 500mg TID AM CBC & CRP #Otitis Externa/TM perforation Zoster has affected ear region, unable to visualize TM on admission. re-examined 12/04 which appears to be small perforated tympanic membrane. Keep ear dry, will need ENT referral on discharge. Switched to PO Cipro secondary to IV discomfort. Plan to dc on 12/08 to complete 7 day course. #Hypokalemia - resolved K at 3.4 s/p 20meq AM BMP #hyponatremia Na stable @ 133. Baseline ~ 137 AM BMP #weakness secondary to viral infection PT/OT consulted --> recommending rehab. Referrals out to [facility] fall precautions #HTN - Lisinopril #HLD - statin DVT prophylaxis: Lovenox Code: full updated family at bedside 12/05 Patient is stable for discharge & awaiting a rehab bed. Admission and Anticipated Discharge Date Admission Date: December 01, 2024 Supervising Physician Co-Signing Physician Notes The patient was not seen by me. The chart was reviewed. Case discussed with MILVIA Qureshi. Agree with assessment and plan Subjective Estela was seen and examined this morning. She has had some IV discomfort but aside from that she has been doing okay. She is still complaining of nerve pain on the left side of her face & is agreeable to increase her gabapentin. Physical Exam Constitutional: no acute distress Respiratory: normal respiratory effort Skin: vesicular rash on left side of face improving. Neurologic: PERRL, EOMI, accommodation nl, no face palsy, no dysarthria Psychiatric: A+Ox3, euthymic affect Results & Data Results & Data Vital Signs (Past 12 Hours) Vital Signs Temp Pulse Resp BP Pulse Ox O2 Del Method 12/05/24 07:17 37.1 C 74 18 118/63 94 Room Air PG Care Time/CCT Total # of Minutes Spent Total Time Spent with Patient: Total time spent is greater than 50% in coordination of care (as documented) at patient's floor/unit and/or counseling patient: Coding Level of Care Code 20485 SUB INP/OBS CARE 235MIN Diagnoses Herpes zoster with complication B02.8 Herpes zoster complications: unspecified herpes zoster complication Acute otitis externa of left ear, unspecified type H60.502 Chronicity: acute Laterality: left Otitis externa type: unspecified type (1) Shingles Herpes zoster complications: unspecified herpes zoster complication Qualified Code(s): B02.8 - Zoster with other complications (2) Otitis externa Chronicity: acute Laterality: left Otitis externa type: unspecified type Qualified Code(s): H60.502 - Unspecified acute noninfective otitis externa, left ear
[2024-12-05] MEDS: GABAPENTIN 100 MG CAP PO SCH (15:15)
[2024-12-05] MEDS: POLYETHYLENE (MIRALAX) 17 GM PACK PO PRN (15:19)
[2024-12-05] MEDS: ACYCLOVIR 400 MG TAB PO SCH (17:43)
[2024-12-06 11:11] LABS: Anion Gap 5.0 (3-11); Blood Urea Nitrogen 10.0 mg/dl (6-23); Calcium 8.9 mg/dl (8.6-10.3); Carbon Dioxide 32.0 mmol/L (21-32); Chloride 95.0 mmol/L (98-107); Creatinine Clr Calc Pharmacy 56.6 ml/min; Glucose 113.0 mg/dl (70-99(Fasting)); Potassium 3.9 mmol/L (3.5-5.1); Sodium 132.0 mmol/L (136-145)
--- NOTE | 2024-12-06 11:32 | Hospitalist Progress Note ---
Date of Service December 06, 2024 Assessment & Plan (1) Shingles: (2) Otitis externa: Plan This is an 89 year old female with past medical history of arthritis, hypertension, HLD who presented to the ED on 12/01/2024 with a chief complaint of weakness & shingles. While in the ED she had a head CT that was negative for acute intracranial findings but did reveal left facial skin thickening & subcutaneous stranding consistent w/ an infectious/inflammatory process, CBC wnl, procal WNL. BMP w/ mildly low K of 3.4 & low sodium of 128. CRP mildly elevated at 1.88. HSV studies pending. Eye exam was completed by ED in which there were no signs of the zoster infection spreading. #Herpes Zoster w/ ongoing vesicular rash for ~ 7 days outpatient. CBC wnl, procal WNL; CRP peaked at 71.6 & has downtrended to 5.54. head CT:negative for acute intracranial findings; left facial skin thickening & subcutaneous stranding consistent w/ an infectious/inflammatory process Eye exam completed by ED provider who noted no spread to left eye. Switched IV Acyclovir to PO secondary to pain w/ infusions. Plan to dc on 12/08 to complete 7 day course. Continue Gabapentin to aide w/ nerve pain. --> increased to 500mg TID #Otitis Externa/TM perforation Zoster has affected ear region, unable to visualize TM on admission. re-examined 12/04 which appears to be small perforated tympanic membrane. Keep ear dry, will need ENT referral on discharge. Switched to PO Cipro secondary to IV discomfort. Plan to dc on 12/08 to complete 7 day course. #Hypokalemia - resolved K at 3.9 #hyponatremia Na stable @ 132 Baseline ~ 137 Can trend every other day while inpatient. #weakness secondary to viral infection PT/OT consulted --> recommending rehab. Referrals out to [facility] fall precautions #HTN - Lisinopril #HLD - statin DVT prophylaxis: Lovenox Code: full updated family at bedside 12/06 Patient is stable for discharge & awaiting a rehab bed. Discussed w/ CM 12/06 that referrals are still pending for rehab. Admission and Anticipated Discharge Date Admission Date: December 01, 2024 Duc Palmer was seen and examined this morning with her son at bedside. She reports her face is feeling like she had "novocaine" in it. She reports the nerve pain has decreased since increasing the gabapentin. She denied any additional complaints today. Physical Exam Constitutional: no acute distress Respiratory: normal respiratory effort Skin: left side of face w/ brown/yellow crusting, minimal erythema Neurologic: PERRL, EOMI, accommodation nl, no face palsy, no dysarthria Psychiatric: A+Ox3, euthymic affect Results & Data Results & Data Vital Signs (Past 12 Hours) Vital Signs Temp Pulse Resp BP Pulse Ox O2 Del Method 12/06/24 07:45 Room Air 12/06/24 07:12 36.8 C 73 18 125/68 93 Room Air PG Care Time/CCT Total # of Minutes Spent Total Time Spent with Patient: Total time spent is greater than 50% in coordination of care (as documented) at patient's floor/unit and/or counseling patient: Coding Level of Care Code 39420 SUB INP/OBS CARE 2/35MIN Diagnoses Herpes zoster with complication B02.8 Herpes zoster complications: unspecified herpes zoster complication Acute otitis externa of left ear, unspecified type H60.502 Chronicity: acute Laterality: left Otitis externa type: unspecified type (1) Shingles Herpes zoster complications: unspecified herpes zoster complication Qualified Code(s): B02.8 - Zoster with other complications (2) Otitis externa Chronicity: acute Laterality: left Otitis externa type: unspecified type Qualified Code(s): H60.502 - Unspecified acute noninfective otitis externa, left ear
[2024-12-07 06:48] LABS: Hematocrit (blood only) 31.8 % (37.0-47.0); Hemoglobin 10.4 g/dl (12.0-16.0); Mean Corpuscular Hemoglobin 30.2 pg (25.0-34.0); Mean Corpuscular Volume 92.4 fL (80.0-100.0); Platelet Count 286 K/uL (130-400); RDW Standard Deviation 46.9 fL (36.4-46.3); Red Blood Count 3.44 M/uL (4.20-5.40); White Blood Count 8.91 K/ul (4.8-10.8)
[2024-12-07 07:02] LABS: Anion Gap 6.0 (3-11); Blood Urea Nitrogen 12.0 mg/dl (6-23); Calcium 8.8 mg/dl (8.6-10.3); Carbon Dioxide 27.0 mmol/L (21-32); Chloride 99.0 mmol/L (98-107); Creatinine Clr Calc Pharmacy 72.4 ml/min; Glucose 99.0 mg/dl (70-99(Fasting)); Potassium 4.1 mmol/L (3.5-5.1); Sodium 132.0 mmol/L (136-145)
[2024-12-07] MEDS: ACYCLOVIR 400 MG TAB PO SCH (11:41)
--- NOTE | 2024-12-07 17:25 | Hospitalist Progress Note ---
Date of Service December 07, 2024 Assessment & Plan (1) Shingles: (2) Otitis externa: Plan This is an 89 year old female with past medical history of arthritis, hypertension, HLD who presented to the ED on 12/01/2024 with a chief complaint of weakness & shingles. While in the ED she had a head CT that was negative for acute intracranial findings but did reveal left facial skin thickening & subcutaneous stranding consistent w/ an infectious/inflammatory process. Eye exam was completed by ED in which there were no signs of the zoster infection spreading. #Herpes Zoster w/ ongoing vesicular rash for ~ 7 days outpatient. Recieved IV acyclovir x 5 days, then switched to PO however at gential HSV dosing. Switching to higher shingles dosing at 5x/day - discussed with pharmacy continue for 3 additional days. CBC wnl, procal WNL; CRP peaked at 71.6 & has downtrended to 5.54. Continue Gabapentin to aide w/ nerve pain increased to 500mg TID - wean as tolerated, no dose changes made today #Otitis Externa/TM perforation Zoster has affected ear region, unable to visualize TM on admission. re-examined 12/04 which appears to be small perforated tympanic membrane. Exam 12/07 unable to visualize d/t scabbed lesions Keep ear dry, will need ENT referral on discharge. Switched to PO Cipro secondary to IV discomfort. Plan to dc on 12/08 to complete 7 day course. #Hypokalemia - resolved K at 3.9 #hyponatremia - acute Na stable @ 132, pt asymptomatic AM BMP - check serum/urine osm #weakness secondary to viral infection. patient is below her functional baseline - previously did not need assistive devices, still drives PT/OT consulted --> recommending rehab. Referrals out to [facility]. insurance denied [facility] #HTN - Lisinopril #HLD - statin DVT prophylaxis: Lovenox Dispo: continued inpatient stay awaiting safe discharge plan updated family at bedside 12/06 & 12/07 Admission and Anticipated Discharge Date Admission Date: December 01, 2024 Supervising Physician Co-Signing Physician Notes MILVIA Supervision Note: I did not personally see or examine the patient today, but I verified all [place] points of MILVIA Chavez's assessment and plan with the following exceptions/additions: None Subjective Patient seen sitting up in the chair - family present at bedside Reports that pain is worse when she wakes up in the morning and when eating has a sensation that there is liquid in her ear - denies lightheadedness, dizziness, or room spinning feeling Review of Systems Review of Systems: All systems reviewed & are unremarkable except as noted in Subjective Physical Exam Physical Exam: General: NAD, VS as above HEENT: shingles lesions left side of face - some honeycomb scabbing, others da rker red. left ear canal - unable to fully visulize TM d/t scabing. right TM intact, no erythema Resp: normal respiratory effort, lungs clear to auscultation CV: RRR, no murmur, Abd: normal bowel sounds, non tender, no hepatosplenomegaly Extremities: Moves all extremities, no edema Neuro: A&O x3, Results & Data Results & Data Vital Signs (Past 12 Hours) Vital Signs Temp Pulse Resp BP Pulse Ox O2 Del Method 12/07/24 14:45 98.6 F 79 18 137/71 93 Room Air 12/07/24 10:50 Room Air 12/07/24 07:39 98.8 F 77 18 117/72 96 Room Air Laboratory Results cbc and chemistry reviewed PG Care Time/CCT Total # of Minutes Spent Total Time Spent with Patient: Total time spent is greater than 50% in coordination of care (as documented) at patient's floor/unit and/or counseling patient: Coding Level of Care Code 80338 SUB INP/OBS CARE 2/MIN Diagnoses Herpes zoster with complication B02.8 Herpes zoster complications: unspecified herpes zoster complication Acute otitis externa of left ear, unspecified type H60.502 Chronicity: acute Laterality: left Otitis externa type: unspecified type (1) Shingles Herpes zoster complications: unspecified herpes zoster complication Qualified Code(s): B02.8 - Zoster with other complications (2) Otitis externa Chronicity: acute Laterality: left Otitis externa type: unspecified type Qualified Code(s): H60.502 - Unspecified acute noninfective otitis externa, left ear
[2024-12-08 07:53] LABS: Anion Gap 6.0 (3-11); Blood Urea Nitrogen 11.0 mg/dl (6-23); Calcium 8.8 mg/dl (8.6-10.3); Carbon Dioxide 28.0 mmol/L (21-32); Chloride 99.0 mmol/L (98-107); Creatinine Clr Calc Pharmacy 71.0 ml/min; Glucose 93.0 mg/dl (70-99(Fasting)); Potassium 3.9 mmol/L (3.5-5.1); Sodium 133.0 mmol/L (136-145)
--- NOTE | 2024-12-08 13:54 | Hospitalist Progress Note ---
Date of Service December 08, 2024 Assessment & Plan (1) Shingles: (2) Otitis externa: Plan This is an 89 year old female with past medical history of arthritis, hypertension, HLD who presented to the ED on 12/01/2024 with a chief complaint of weakness & shingles. While in the ED she had a head CT that was negative for acute intracranial findings but did reveal left facial skin thickening & subcutaneous stranding consistent w/ an infectious/inflammatory process. Eye exam was completed by ED in which there were no signs of the zoster infection spreading. #Herpes Zoster w/ ongoing vesicular rash for ~ 7 days outpatient. Recieved IV acyclovir x 5 days, then switched to PO however at gential HSV dosing. 12/07 Switching to higher shingles dosing at 5x/day - discussed with pharmacy continue for 3 additional days. CBC wnl, procal WNL; CRP peaked at 7.16 & has downtrended to 5.54. Continue Gabapentin to aide w/ nerve pain increased to 500mg TID - wean as tolerated, no dose changes made today #Otitis Externa/TM perforation Zoster has affected ear region, unable to visualize TM on admission. re-examined 12/04 which appears to be small perforated tympanic membrane. Exam 12/07 unable to visualize d/t scabbed lesions Keep ear dry, will need ENT referral on discharge. Completed course of cipro Consider antibiotic drop otic #Hypokalemia - resolved K at 3.9 #hyponatremia - acute Na stable @ 132, pt asymptomatic serum/urine Osm consistent with SIADH check TSH in AM for completeness #weakness secondary to viral infection. patient is below her functional baseline - previously did not need assistive devices, still drives PT/OT consulted --> recommending rehab. Referrals out to [facility]. insurance denied [facility] #HTN - Lisinopril #HLD - statin DVT prophylaxis: Lovenox Dispo: continued inpatient stay awaiting safe discharge plan updated family at bedside 12/06 & 12/07 & 12/08 Admission and Anticipated Discharge Date Admission Date: December 01, 2024 Supervising Physician Co-Signing Physician Notes PA Supervision Note: I did not personally see or examine the patient today, but I verified all king[place] points of MILVIA Chavez's assessment and plan with the following exceptions/additions: If pain worsening, can increase gabapentin dose or consider switch to Lyrica for postherpetic neuralgia indication. Consider Ciprodex otic for otitis externa Subjective Patient seen sitting up in the chair - family present at bedside. Patient reports feeling better, facial pain has improved - pain is worse in her ear. denies lightheadedness or dizziness Review of Systems Review of Systems: All systems reviewed & are unremarkable except as noted in Subjective Physical Exam Physical Exam: General: NAD, VS as above HEENT: shingles lesions left side of face - most with dark red scabbing Resp: normal respiratory effort, lungs clear to auscultation CV: RRR, no murmur, Abd: normal bowel sounds, non tender, no hepatosplenomegaly Extremities: Moves all extremities, no edema Neuro: A&O x3, Results & Data Results & Data Vital Signs (Past 12 Hours) Vital Signs Temp Pulse Resp BP Pulse Ox O2 Del Method 12/08/24 09:35 Room Air 12/08/24 08:12 98.4 F 82 20 147/69 H 95 Room Air Laboratory Results bmp, serum osm reviewed urine Na and urine osm reviewed PG Care Time/CCT Total # of Minutes Spent Total Time Spent with Patient: Total time spent is greater than 50% in coordination of care (as documented) at patient's floor/unit and/or counseling patient: Coding Level of Care Code 89091 SUB INP/OBS CARE 2MIN Diagnoses Herpes zoster with complication B02.8 Herpes zoster complications: unspecified herpes zoster complication Acute otitis externa of left ear, unspecified type H60.502 Chronicity: acute Laterality: left Otitis externa type: unspecified type (1) Shingles Herpes zoster complications: unspecified herpes zoster complication Qualified Code(s): B02.8 - Zoster with other complications (2) Otitis externa Chronicity: acute Laterality: left Otitis externa type: unspecified type Qualified Code(s): H60.502 - Unspecified acute noninfective otitis externa, left ear
[2024-12-08] MEDS ORDERED: CALCIUM CARBONATE 500 MG CHEWABLE TAB PO PRN (23:41)
[2024-12-09 08:35] VITALS: BP 142/64; PULSE 75; RESP 17; TEMP 97.9; O2SAT 97
--- NOTE | 2024-12-09 08:39 | Discharge Summary ---
Discharge Summary Date of Service December 09, 2024 Principal Dx & Hospital Course #1 = Principal Diagnosis (1) Shingles: (2) Otitis externa: Plan #Herpes Zoster This is an 89 year old female with past medical history of arthritis, hypertension, HLD who presented to the ED on 12/01/2024 with a chief complaint of weakness & shingles. While in the ED she had a head CT that was negative for acute intracranial findings but did reveal left facial skin thickening & subcutaneous stranding consistent w/ an infectious/inflammatory process. Eye exam was completed by ED in which there were no signs of the zoster infection spreading. Received IV acyclovir x 5 days, then switched to PO however at gential HSV dosing. 12/07 Switching to higher shingles dosing at 5x/day - discussed with pharmacy continue for 3 additional days, last day 12/09. Continue Gabapentin to aide w/ nerve pain - dc when pain has resolved #Otitis Externa/TM perforation Zoster has affected ear region, unable to visualize TM on admission. re-examined 12/04 which appears to be small perforated tympanic membrane. Exam 12/07 unable to visualize d/t scabbed lesions Keep ear dry, will need ENT referral on discharge. Completed course of cipro #Hypokalemia - resolved K at 3.9 #hyponatremia - acute Na stable @ 132, pt asymptomatic serum/urine Osm consistent with SIADH. TSH WNL #weakness secondary to viral infection. patient is below her functional baseline - previously did not need assistive devices, still drives PT/OT consulted --> recommending rehab. Referrals out to [facility]. insurance denied [employer] #HTN - Lisinopril #HLD - statin DVT prophylaxis: Lovenox Dispo: discharge to [facility] today updated family at bedside 12/06 & 12/07 & 12/08 & 12/09 Notes For Next Care Provider need ENT follow up Admission HPI Per Admitting Provider This is an 89 year old female with past medical history of arthritis, hypertension, HLD who presented to the ED on 12/01/2024 with a chief complaint of weakness & shingles. Estela was seen and examined this morning with her daughters at beside. Approximately 1 week ago she began to develop tooth pain & vesicles inside the mouth on her left side. She went to the dentist presuming she had a dental infection & was given abx & voltaren & recommended a root canal. Then the vesicular rash spread to her face on the left side of her face. She also developed ear pain & her left ear has became edematous & painful. Daughters state she started to become more weak as well. she went to PCP yesterday in which she was given valacyclovir, gabapentin & recommended to go to an eye doctor. This morning, she fell off the toilet and may have struck her head. Daughters state she typically lives alone & is independent up until this started. Denies CP, SOB, abdominal pain, nausea, vomiting, or LE edema. While in the ED she had a head CT that was negative for acute intracranial findings but did reveal left facial skin thickening & subcutaneous stranding consistent w/ an infectious/inflammatory process, CBC wnl, procal WNL. BMP w/ mildly low K of 3.4 & low sodium of 128. CRP mildly elevated at 1.88. HSV studies pending. Eye exam was completed by ED in which there were no signs of the zoster infection spreading. Code discussion did take place & she does confirm that she is a DNR/DNI. Discharge Exam General: NAD, VS as above HEENT: shingles lesions left side of face - most with dark red scabbing, improving Resp: normal respiratory effort, lungs clear to auscultation CV: RRR, no murmur, Extremities: Moves all extremities, no edema Neuro: A&O x3, Discharge Plan Discharge Items Patient Disposition: Transfer Residential Fac Reason For Visit: SHINGLES Discharge Diagnosis: Shingles Condition on Discharge: Fair Activity: As commented below Activity Comment: work with therapy to get stronger Bathing: No limitations Weightbearing: Full weightbearing Non-emergency contact: Primary Care Provider Call non-emergency contact if: you have any medication questions, your symptoms worsen, your pain is not controlled and your temperature is above 101 Follow-up/Referrals: Ruchi Ulloa MD [Primary Care Provider] - (follow up after discharge from rehab) Mitchell Novak MD [Physician] - (ENT follow up, 2-3 weeks ) Diet: Regular Diet Texture: Easy to Chew Addtl Attending Provider Instructions: Ms. Keys, You were hospitalized after having a bad case of shingles with signifcant pain and weakness. Thankfully your pain is improving. You were treated with IV and oral antiviral - today will be the last day of this medications, acyclovir. Avoid infants and immunocompromised people until all your lesions are healed. You were also started on a medication called gabapentin for the nerve pain - as this pain improves, you can be taken off this medication. There was concern for a small rupture of your tympanic membrane - you will need to follow up with ENT for this. Please avoid submerging your head - baths, swimming, etc until you know this is healed. It is okay to shower, just don't deliberately fill your ear with water. Please follow up with your PCP after discharge from [facility]. Work with therapy to get stronger Pending Studies at Discharge: No Stand-Alone Forms: [facility] Skilled Items Patient informed of condition?: Yes DNR: Yes Discharge Level of Care: Skilled Communicable Disease: Yes Discharge Prognosis: Improving Lines: None Urinary Catheter: No Medications and DC Order Prescriptions: New acyclovir 400 mg Tablet 800 mg PO [id number] 1 Days Qty: 5 0RF Continued ibuprofen [Advil] 200 mg tablet 200 mg PO Q6H PRN (Reason: Pain) Hold Instructions: Resume on 09/02/24. simvastatin 40 mg tablet 40 mg PO HS Qty: 90 3RF alendronate 70 mg tablet 70 mg PO Q7D Qty: 12 3RF Patient Comments: Friday Rx Instructions: PLEASE TAKE ON EMPTY STOMCH WITH PLENTY OF WATER AND REMAIN UPRIGHT FOR AT LEAST 30 MINUTES AFTER TAKING. Takes on Friday lisinopril 5 mg tablet 5 mg PO QPM Qty: 90 3RF mupirocin 2 % ointment 1 applic topical TID Qty: 15 1RF gabapentin 300 mg capsule 300 mg PO TID Qty: 90 2RF Rx Instructions: Take w/ 100mg to equal 400mg three times daily [id number] 3.5-10,000-1 mg/mL-unit/mL-% drops,suspension 4 drp otic (ear) Q8H Qty: 10 0RF Rx Instructions: Start Date 11/30/24 gabapentin 100 mg capsule 100 mg PO TID Qty: 90 2RF Rx Instructions: Take w/ 300mg to equal 400mg three times daily magnesium aspart,citrate,oxide 400 mg magnesium capsule 400 mg PO DAILY multivitamin Tablet 1 tab PO QAM calcium carbonate-vitamin D3 [Calcium 600 + D(3)] 600 mg calcium- 200 unit Capsule 1 cap PO QAM Systane (PF) 0.4-0.3 % Dropperette 1 drp OPHTHALMIC (EYE) TID PRN (Reason: Dry Eyes) ascorbic acid (vitamin C) [Vitamin C] 500 mg Tablet 1,000 mg PO QAM vitamin B complex Capsule 1 cap PO QAM PreserVision AREDS 4,296 mcg-226 mg-90 mg Capsule 1 cap PO BID Discontinued valacyclovir [Valtrex] 1 gram tablet 1,000 mg PO TID Qty: 21 1RF Rx Instructions: Start Date 11/30/24 x7 days Discharge Orders: Discharge Order (Routine); Ordered 12/09/24 Ordered By: Codi Chavez Admission Data Admit Date/Time: 12/01/24 11:44 Attending Provider: Micehlle Mckeon Admit Provider: Danish Judd Primary Care Provider: Ruchi Ulloa Other Providers: [facility]; [facility]; Danish Judd Other Interventions: Discharge Summary Assessment (RN) Last Done: 12/09/24 11:43 Hospital Stay Data Consultations 12/01/24 11:32 ED Decision to Admit Stat Diagnostic Imagining Performed Head CT 12/01/24 09:36 CT SCAN OF THE BRAIN WITHOUT IV CONTRAST CLINICAL HISTORY: Confusion. COMPARISON STUDY: None. TECHNIQUE: Unenhanced axial CT scan of the brain was performed from the vertex to the skull base. A dose lowering technique was utilized adhering to the principles of ALARA. CT DOSE: 547.75 mGy.cm FINDINGS: Brain parenchyma: No acute intracranial hemorrhage, midline shift or mass effect is present. Morales-white matter differentiation is preserved. There are no extra- axial fluid collections. There are no findings to suggest acute dural sinus thrombosis or acute territorial infarct. White matter hypodensities are suggestive of small vessel disease. Ventricles, sulci, cisterns: There is no hydrocephalus. The basal cisterns are patent. Calvarium: Unremarkable. Sinuses and mastoids: The visualized paranasal sinuses are clear. The mastoid air cells are well pneumatized. Orbits: The bony orbits are grossly intact. Incidental note is made of left facial skin thickening and subcutaneous stranding. No associated fluid collection is identified. IMPRESSION: 1. No acute intracranial findings. 2. Left facial skin thickening and subcutaneous stranding consistent with an in fectious/inflammatory process. ACT 112: Negative or not required by law. Electronically signed by: Donnie Rogel M.D. 12/01/2024 10:28 AM Pending Results Patient Have Any Pending Studies at Discharge: No Discharge Instructions Given to Patient (Per Discharging Provider) Ms. Keys, You were hospitalized after having a bad case of shingles with signifcant pain and weakness. Thankfully your pain is improving. You were treated with IV and oral antiviral - today will be the last day of this medications, acyclovir. Avoid infants and immunocompromised people until all your lesions are healed. You were also started on a medication called gabapentin for the nerve pain - as this pain improves, you can be taken off this medication. There was concern for a small rupture of your tympanic membrane - you will need to follow up with ENT for this. Please avoid submerging your head - baths, swimming, etc until you know this is healed. It is okay to shower, just don't deliberately fill your ear with water. Please follow up with your PCP after discharge from [facility]. Work with therapy to get stronger Supervising Physician Co-Signing Physician Notes PA Supervision Note: I did not personally see or examine the patient today, but I verified all [place] points of MILVIA Chavez's assessment and plan with the following exceptions/additions: None Total Time Total Time Spent Total Time Spent (In Minutes): Time spent day of discharge 35 minutes including direct patient care, medication reconciliation, documentation, review of labs and images, and coordination of care. Coding Level of Care Code 49382 INP/OBS DISCH >30 MIN Diagnoses Herpes zoster with complication B02.8 Herpes zoster complications: unspecified herpes zoster complication Acute otitis externa of left ear, unspecified type H60.502 Chronicity: acute Laterality: left Otitis externa type: unspecified type
--- NOTE | 2024-12-09 10:40 | Hospitalist Progress Note ---
Date of Service December 09, 2024 Assessment & Plan (1) Shingles: (2) Otitis externa: Plan This is an 89 year old female with past medical history of arthritis, hypertension, HLD who presented to the ED on 12/01/2024 with a chief complaint of weakness & shingles. While in the ED she had a head CT that was negative for acute intracranial findings but did reveal left facial skin thickening & subcutaneous stranding consistent w/ an infectious/inflammatory process. Eye exam was completed by ED in which there were no signs of the zoster infection spreading. #Herpes Zoster w/ ongoing vesicular rash for ~ 7 days outpatient. Recieved IV acyclovir x 5 days, then switched to PO however at gential HSV dosing. 12/07 Switching to higher shingles dosing at 5x/day - discussed with pharmacy continue for 3 additional days - last day 12/09/24 CBC wnl, procal WNL; CRP peaked at 7.16 & has downtrended to 5.54. Continue Gabapentin to aide w/ nerve pain increased to 500mg TID - discontinue when pain resolved #Otitis Externa/TM perforation Zoster has affected ear region, unable to visualize TM on admission. re-examined 12/04 which appears to be small perforated tympanic membrane. Exam 12/07 unable to visualize d/t scabbed lesions Keep ear dry, will need ENT referral on discharge. Completed course of cipro #Hypokalemia - resolved K at 3.9 #hyponatremia - acute Na stable @ 132, pt asymptomatic serum/urine Osm consistent with SIADH. TSH WNL. #weakness secondary to viral infection. patient is below her functional baseline - previously did not need assistive devices, still drives PT/OT consulted --> recommending rehab. Referrals out to [facility]. insurance denied [employer] #HTN - Lisinopril #HLD - statin DVT prophylaxis: Lovenox Dispo: continued inpatient stay , plan was for [facility] today, but they can no longer take today updated family at bedside 12/06 & 12/07 & 12/08 & 12/09 Admission and Anticipated Discharge Date Admission Date: December 01, 2024 Subjective patient seen sitting up in the chair - family present at bedside pain is improving , able to eat just has the sensation that something is in her ear no other concerns Review of Systems Review of Systems: All systems reviewed & are unremarkable except as noted in Subjective Physical Exam Physical Exam: General: NAD, VS as above HEENT: shingles lesions left side of face - most with dark red scabbing Resp: normal respiratory effort, lungs clear to auscultation CV: RRR, no murmur, Abd: normal bowel sounds, non tender, no hepatosplenomegaly Extremities: Moves all extremities, no edema Neuro: A&O x3, Results & Data Results & Data Vital Signs (Past 12 Hours) Vital Signs Temp Pulse Resp BP Pulse Ox O2 Del Method 12/09/24 08:34 97.9 F 75 17 142/64 H 97 Room Air 12/09/24 07:30 Room Air 12/08/24 23:47 97.5 F L 80 18 124/57 L 94 Room Air Laboratory Results tsh reviewed PG Care Time/CCT Total # of Minutes Spent Total Time Spent with Patient: Total time spent is greater than 50% in coordination of care (as documented) at patient's floor/unit and/or counseling patient: Coding Level of Care Code 28134 SUB INP/OBS CARE 2/35MIN Diagnoses Herpes zoster with complication B02.8 Herpes zoster complications: unspecified herpes zoster complication Acute otitis externa of left ear, unspecified type H60.502 Chronicity: acute Laterality: left Otitis externa type: unspecified type (1) Shingles Herpes zoster complications: unspecified herpes zoster complication Qualified Code(s): B02.8 - Zoster with other complications (2) Otitis externa Chronicity: acute Laterality: left Otitis externa type: unspecified type Qualified Code(s): H60.502 - Unspecified acute noninfective otitis externa, left ear
== END 2024-12-09 12:32 | DRG 866 ==
LOC: SUATTDRO → ED 09:21 → SUATTDRO 11:44 → EDINP 11:44 → 2N 14:37 → 3E 12-04 15:05